=== PATIENT | male | born 1990 | race Caucasian/White ===

== ENCOUNTER 2017-03-04 20:38 | Emergency (ER) | payer OTHER | END 2017-03-04 22:18 | disposition home or self-care (01) | LOC: FER 20:38 | DX: S16.1XXA Strain of muscle, fascia and tendon at neck level, initial encounter (principal); S80.12XA Contusion of left lower leg, initial encounter; F17.200 Nicotine dependence, unspecified, uncomplicated; W01.0XXA Fall on same level from slipping, tripping and stumbling without subsequent striking against object, initial encounter; Y92.69 Other specified industrial and construction area as the place of occurrence of the external cause; Y99.0 Civilian activity done for income or pay | CPT/HCPCS: 70450; 72125; 73590; J1885 ==

== ENCOUNTER 2021-08-30 08:33 | Emergency (ER) | payer OTHER ==
[~2021-08-30 08:33] MED LIST: KEFLEX500 MG PO
[2021-08-30] MEDS ORDERED: BACTRIM DS TAB1 EACH PO ×2 (09:00→09:32)
[2021-08-30] MEDS ORDERED: HYDROCODON-ACE1 EAC2 PO (09:30)
[2021-08-30] MEDS ORDERED: NAPROXEN500 MG PO (09:30)
== END 2021-08-30 09:45 | disposition home or self-care (01) ==
LOC: FER 08:33
DX: L02.511 Cutaneous abscess of right hand (principal); L03.011 Cellulitis of right finger; F17.210 Nicotine dependence, cigarettes, uncomplicated
CPT/HCPCS: 73130; 96372; J1170; J2930